=== PATIENT | female | born 1930 | race Caucasian/White ===

== ENCOUNTER → 2016-10-27 | Outpatient (CLI) | payer MEDICARE ==
[~2016-10-27] MED LIST: AMITRIPTYLINE HC5 GM PO; AMITRYPTYLINE PO; ASPIRIN81 M2 PO; ASPIRIN81 MG PO; ATENOLOL50 MG PO; ATIVAN0.5 M1 PO; CLARITIN10 M2 PO; CLARITIN10 M3 DOB; DIOVAN160 MG PO; GABAPENTIN300 M2 PO; GLIPIZIDE5 MG/BOTT1 PO; GLUCOTROL10 MG PO; HYDROCHLOROTHIA25 MG PO; LEVOFLOXACIN500 MG PO; MULTI VITAMIN1 EACH PO; MULTI-VITAMIN1 EAC1 PO; NASAL SPRAY30 M1; OMEPRAZOLE20 M1 PO; OMEPRAZOLE20 M2 PO; POLYOX WSR-3011 GM PO; SIMVASTATIN40 MG PO; VERAPAMIL ER240 MG PO; VITAMIN C100 M1 PO; VITAMIN C125 MG PO
== END | disposition home or self-care (01) ==
LOC: CECH 13:16
DX: I27.2 Other secondary pulmonary hypertension (principal); I50.32 Chronic diastolic (congestive) heart failure
CPT/HCPCS: 93306